=== PATIENT | female | born 1980 | race Caucasian/White ===

== ENCOUNTER 2022-11-24 20:30 | Outpatient (REF) | payer BC, SELFPAY ==
[2022-12-01 13:07] LABS: Age Gdln ACOG Testing Note (.); HPV Aptima Negative (Negative); IGP, Aptima HPV, rfx 16/18,45 Note (.)
== END 2022-11-24 20:31 | disposition home or self-care (01) ==
LOC: LAB 20:30
PROVIDERS: PCP Physician Assistant; Visit Provider Physician Assistant
DX: Z12.4 Encounter for screening for malignant neoplasm of cervix (principal)
CPT/HCPCS: 87624; G0145

== ENCOUNTER 2022-12-15 10:56 | Outpatient (OUT) | payer BC, SELFPAY ==
--- NOTE | 2022-12-15 10:59 | US_ITS ---
The [address] [address] Patient Name: CHAYO MILLER MRN: [id number] date: 1980 Sex: F Assigned Patient Location: US Current Patient Location: US Accession/Order Number: [id number] Exam Date: 12/15/2022 11:00 Report Date: 12/15/2022 14:23 At the request of: RENETTA ABAD Procedure: US pelvis w/ transvaginal EXAMINATION: US pelvis w/ transvaginal HISTORY: MENORRHAGIA , chronic COMPARISON: No relevant comparison available. TECHNIQUE: Transabdominal and/or transvaginal sonographic examination was performed as indicated by examination type. FINDINGS: UTERUS: Slightly prominent, but normal contour and echotexture. Uterus size: 8.1 x 5.4 x 6.4 cm ENDOMETRIUM: Slightly heterogeneous, but normal thickness. No mass or fluid collection. Endometrial thickness: 9 mm RIGHT OVARY: Contains several follicles. Duplex Doppler demonstrates normal waveform and flow; resistive index 0.5. Ovary size: 4.2 x 2.3 x 2.4 cm LEFT OVARY: Contains several follicles. Duplex Doppler demonstrates normal waveform and flow; resistive index 0.6. Ovary size: 4.1 x 2.1 x 2.7 cm CUL-DE-SAC: Unremarkable. No significant free fluid. BLADDER: Unremarkable. OTHER: None. US/US pelvis w/ transvaginal IMPRESSION: 1. Slightly heterogeneous endometrium, but no appreciable mass or abnormal thickening to account for patient's symptoms. 2. Both ovaries contain several follicles; normal for age. Electronically authenticated by: CORINA HUANG Date: 12/15/2022 14:23
== END 2022-12-15 10:57 | disposition home or self-care (01) ==
LOC: US 10:56
PROVIDERS: PCP Family Medicine; Visit Provider Physician Assistant
DX: N92.1 Excessive and frequent menstruation with irregular cycle (principal)
CPT/HCPCS: 36415; 76830; 76856; 83036; 84439; 84443; 84702; 85025; 85610; 85730

== ENCOUNTER 2022-12-15 11:38 | Outpatient (OUT) | payer BC, SELFPAY ==
[2022-12-15 12:16] LABS: Basophils Percent Auto 0.5 % (0.2-2.0); Eosinophils Absolute Auto 0.2 10^3/uL (0.0-0.7); Eosinophils Percent Auto 2.6 % (0.9-7.0); Hematocrit 42.9 % (36.0-48.0); Hemoglobin 13.8 g/dL (12.0-16.0); Immature Granulocytes Abs Auto 0.02 10^3/uL (0.00-0.03); Immature Granulocytes Pct Auto 0.3 % (0.0-0.5); Lymphocytes Percent Auto 32.5 % (20.5-60.0); Mean Corpuscular HGB Conc 32.2 g/dL (29.9-35.2); Mean Platelet Volume 9.4 fL (9.5-13.5); Monocytes Absolute Auto 0.4 10^3/uL (0.3-0.8); Monocytes Percent Auto 6.6 % (1.7-12.0); Neutrophils Absolute Auto 3.5 10^3/uL (1.4-6.5); Neutrophils Percent Auto 57.5 % (43.0-75.0); Platelet Count 285 10^3/uL (150-450); Red Blood Count 4.93 10^6/uL (4.20-5.40); Red Cell Distribution Width 12.2 % (11.0-15.0)
[2022-12-15 12:29] LABS: Estimated Average Glucose 100 mg/dL; Glycohemoglobin A1C 5.1 % (4.5-6.2)
[2022-12-15 12:32] LABS: INR 0.98; Partial Thromboplastin Time 25.6 sec (22.3-36.2); Prothrombin Time 10.4 sec (9.0-11.6)
[2022-12-15 12:50] LABS: HCG Quantitative <1 mIU/mL; Thyroid Stimulating Hormone 1.079 uIU/mL (0.358-3.740)
[2022-12-15 12:56] LABS: Free T4 0.93 ng/dL (0.76-1.46)
== END 2022-12-15 11:39 | disposition home or self-care (01) ==
LOC: LAB 11:39
PROVIDERS: PCP Family Medicine; Visit Provider Physician Assistant
DX: N92.1 Excessive and frequent menstruation with irregular cycle (principal)
CPT/HCPCS: 36415; 83036; 84439; 84443; 84702; 85025; 85610; 85730

== ENCOUNTER 2023-01-14 06:12 | Day surgery (SDC) | payer BC, SELFPAY ==
[2023-01-05 09:33] VITALS: BP 137/90; PULSE 75; RESP 16; TEMP 36.3; O2SAT 97; BMI 29.7
[2023-01-14] VITALS (12 sets, daily range): BP systolic 112–144; BP diastolic 74–89; PULSE 72–92; RESP 9–17; TEMP 36.3–36.7; O2SAT 92–98; BMI 29.7
[2023-01-14 06:38] LABS: Basophils Percent Auto 0.5 % (0.2-2.0); Eosinophils Absolute Auto 0.2 10^3/uL (0.0-0.7); Eosinophils Percent Auto 2.6 % (0.9-7.0); Hematocrit 42.1 % (36.0-48.0); Hemoglobin 13.7 g/dL (12.0-16.0); Immature Granulocytes Abs Auto 0.03 10^3/uL (0.00-0.03); Immature Granulocytes Pct Auto 0.4 % (0.0-0.5); Lymphocytes Absolute Auto 2.3 10^3/uL (1.2-3.8); Lymphocytes Percent Auto 29.6 % (20.5-60.0); Mean Corpuscular HGB Conc 32.5 g/dL (29.9-35.2); Mean Corpuscular Hemoglobin 28.4 pg (26.7-34.0); Mean Corpuscular Volume 87.2 fL (81.0-99.0); Mean Platelet Volume 9.5 fL (9.5-13.5); Monocytes Absolute Auto 0.5 10^3/uL (0.3-0.8); Monocytes Percent Auto 6.5 % (1.7-12.0); Neutrophils Absolute Auto 4.6 10^3/uL (1.4-6.5); Neutrophils Percent Auto 60.4 % (43.0-75.0); Platelet Count 266 10^3/uL (150-450); Red Blood Count 4.83 10^6/uL (4.20-5.40); Red Cell Distribution Width 12.1 % (11.0-15.0); White Blood Count 7.7 10^3/uL (4.0-11.0)
[2023-01-14 06:53] LABS: HCG Quantitative <1 mIU/mL
[2023-01-14] MEDS: LACTATED RINGER'S SOLUTION 1,000 ML 50 ML IV (07:04)
[2023-01-14] MEDS: LACTATED RINGER'S SOLUTION 1,000 ML 1000 ML IV (08:54)
--- NOTE | 2023-01-14 09:13 | PM.ONB ---
Brief Operative Note Date of procedure: 01/14/23 Pre-op diagnosis: menorrhagia, dysmenorrhea, desires permanent sterilization Post-op diagnosis: same as pre-op Procedure: NAME OF PROCEDURE: [ ] Vivi endometrial ablation with hysteroscopy. robotic assisted bilateral laparscopic salpingectomy with lt ovarian cystoscopy PROCEDURE: The patient was taken back to the OR where she was prepped and draped in the normal sterile fashion after being placed in the dorsal lithotomy position, after being placed under general anesthesia without difficulty.? A weighted speculum was placed into the vagina. The anterior lip was grasped with a single tooth tenaculum. The patient was then sounded to approximated 8cm. The patient?s cervix was gently dilated using hegardilators. The hysteroscope was passed through the cervix into the uterus where both ostia were seen. No gross evidence of polyps, fibroids or malignancy. The cervical length was noted to be 4 cm. The total cavity length is 4cm.? The Vivi ablation apparatus was set to approximately 4cm in length. This was placed through the cervix and into the uterus. After the seal was tested, at that time the total ablation of 120 seconds was performed with the Vivi withoutdifficulty. All instruments were removed from the vagina. Excellent hemostasis noted.? A wet sponge stick was placed into the patient's vagina. Attention was then turned to the patient's abdomen, where a scalpel was used to make a small infraumbilical incision. The S retractors were then used to dissect the underlying layers until the fascia could be seen. The fascia was then grasped with Mark clamps and tented up. A knife was then used to make a small incision to the fascia. The muscle was identified, at that time two sutures of #0 Vicryl on a GI needle was then used and placed through the fascia. the peritoneum was then identified and entered bluntly. The 10-4 Luis was then placed into the patient's abdomen. This was confirmed with direct visualization of the bowel, using the laparoscope. The patient's abdomen was then insufflated using approximately 4 liters of CO2 gas. Survey of the patient's abdomen demonstrated ovaries were normal in appearance as well as both tubes and uterus. A second and third rt and lt lateral robotic ports which were 8 mm in size, was then placed after the skin incision was made under direct visualization . The robotic arms were engaged. The patient's tube on the patient's right side was identified and tented up using a grasper, the ligasure apparatus was then used to come across the mesosalpingx from the fimbriated end to the insertion site at the uterus, the tube was then amputated and removed in its entirety. This was done on the contralateral side. The tubes were the removed from the patients abdomen. Excellent hemostasis was noted. Lt ovarian cystectomy performed using the vessel sealer. The lateral ports were then moved under direct visualization with excellent hemostasis. All instruments were removed from the patient's abdomen. The fascia was closed using the #0 Vicryl on GI needle. The skin was closed using 4-0 Vicryl subcuticularly. All instruments were removed from the patient's vagina as well. The patient was taken out of the dorsal lithotomy position and placed in the supine position and taken to recovery in stable condition. Sponge, lap and needle counts were correct x2. Anesthesia: LIZ Surgeon: Mark Forte Supervisor Type Photography: Marlena Galvez Estimated blood loss (mL): 575 Pathology: other (bilateral tubes) Condition: stable Disposition: floor
[2023-01-14] MEDS: PROMETHAZINE HCL 25 MG TABLET PO (09:58)
[2023-01-14] MEDS: HYDROCODONE/ACET 5-325 MG TABLET 1 TAB PO (09:58)
== END 2023-01-14 11:05 | disposition home or self-care (01) ==
PROVIDERS: PCP Family Medicine; Visit Provider Obstetrics & Gynecology
PROC: (CPT 49322; principal; 2023-01-14 07:30)
PROC: (CPT 49322; 2023-01-14 07:30)
DX: Z30.2 Encounter for sterilization (principal); N92.0 Excessive and frequent menstruation with regular cycle; N83.202 Unspecified ovarian cyst, left side; N93.9 Abnormal uterine and vaginal bleeding, unspecified; R10.2 Pelvic and perineal pain; J45.909 Unspecified asthma, uncomplicated; K58.9 Irritable bowel syndrome, unspecified; R12 Heartburn; Z87.891 Personal history of nicotine dependence
CPT/HCPCS: 49322; 58563; 58661; 36415; 84702; 85025; 88302; J1170; J2704

== ENCOUNTER 2024-09-20 18:02 | Outpatient (REF) | payer BC, SELFPAY ==
--- OUTSIDE RECORDS SUMMARY | 2024-09-20 11:00 | XMS_ITS | Encounter Summary ---
Author Organization [facility] Address [address] [place] [address] Care Team Providers Care Seismograph Computer Name Role Phone Darlene Comer MD Primary Care Provider [phone] Ankit Hernandez DO Unavailable [phone] Reason for Visit * Reason Comments Well Women Visit Encounter Details Date Type Department Care Team (Late st Contact Info) Description 09/20/2024 11:00 AM EDT Office Visit [facility] [address] [place] [address] Juana Conrad PA [address] [facility] [address] [place], [id number] Well woman exam with routine gynecological exam; Breast cancer screening by mammogram Social History Tobacco Use Types Packs/Day Years Used Date Smoking Tobacco: Former Cigarettes Alcohol Use Standard Drinks/Week Comments Yes 0 (1 standard drink = 0.6 oz pure alcohol) Caffeine intake: 1-2 cups per day AUDIT-C Answer Date Recorded Q1: How often do you have a drink containing alc ohol? 2-4 times a month 07/04/2023 Q2: How many drinks containi ng alcohol do you have on a typical day when you are drinking? 3 or 4 07/04/2023 Q3: How often do you have si x or more drinks on one occasion? Less than monthly 07/04/2023 Comments Unknown Sex and Gender Information Value Date Recorded Sex Assigned at Not on file Legal Sex Female 7:09 PM EDT Gender Identity Not on file Sexual Orientation Not on file documented as of this encounter Last Filed Vital Signs Vital Sign Reading Time Taken Comments Blood Pressure 110/74 09/20/2024 11:20 AM EDT Pulse - - Temperature - - Respiratory Rate - - Oxygen Saturation - - Inhaled Oxygen Concentration - - Weight 79.7 kg (175 lb 12.8 oz) 025 11:20 AM EDT Height - - Body Mass Index 27.53 01/19/2023 8:47 AM EDT documented in this encounter Progress Notes * SHAHNAZ Cartagena - 09/20/2024 11:00 AM EDT Reason for Appointment: Patient ID: June Fernandes is a 43 y.o. female who presents for Well Women Visit Patient presents today for Annual Exam. MEDICATIONS Current Outpatient Medications Medication Instructions Emgality 120 mg naproxen sodium (Aleve) 220 MG tablet Every 12 hours Nurtec 75 mg, Oral, Daily PRN ALLERGIES Allergies Allergen Reactions Promethazine Unknown Other Reaction(s): confusion PROBLEMS Active Ambulatory Problems Diagnosis Date Noted Migraine without aura and without status migrainosus, not intractable 07/04/2023 IBS (irritable bowel syndrome) 07/04/2023 Catamenial disorder 07/04/2023 Abdominal migraine, not intractable 07/04/2023 Chronic migraine with aura 07/04/2023 Resolved Ambulatory Problems Diagnosis Date Noted No Resolved Ambulatory Problems Past Medical History: Diagnosis Date Arthralgia Asthma (HCC) Concussion Encounter for gynecological examination (general) (routine) without abnormal findings Heartburn Irritable bowel syndrome Migraines Plantar fasciitis Rosacea Sinus tarsi syndrome of right foot HISTORY PAST MEDICAL HISTORY SOCIAL HISTORY Past Medical History: Diagnosis Date Arthralgia Asthma (HCC) Concussion Encounter for gynecological examination (general) (routine) without abnormal findings Heartburn Irritable bowel syndrome Migraines Plantar fasciitis Rosacea Sinus tarsi syndrome of right foot Social History Tobacco Use Smoking status: Former Types: Cigarettes Smokeless tobacco: Not on file Substance Use Topics Alcohol use: Yes Comment: Caffeine intake: 1-2 cups per day Drug use: Never FAMILY HISTORY Family History Problem Relation Name Age of Onset Hypertension Mother Hypertension Father Transient ischemic attack Father Migraines Father Hypertension Sister Stroke Maternal Grandmother Melanoma Neg Hx SURGICAL HISTORY Past Surgical History: Procedure Laterality Date SECTION, LOW TRANSVERSE 2014 EGG RETRIEVAL 2013 x2 ENDOMETRIAL ABLATION 01/14/2023 FOOT SURGERY 07/19/2017 FOOT SURGERY Right 03/2017 HAND SURGERY Left 03/2001 OTHER SURGICAL HISTORY 2000 L Hand K Wire Fixation OTHER SURGICAL HISTORY T&A OTHER SURGICAL HISTORY 2013 hemmoidectomy SALPINGECTOMY Bilateral 01/14/2023 TONSILLECTOMY WISDOM TOOTH EXTRACTION WRIST SURGERY Left 01/2020, 06/2020 REVIEW OF SYSTEMS Review of Systems: Review of Systems Constitutional: Negative. HENT: Negative. Eyes: Negative. Respiratory: Negative. Cardiovascular: Negative. Gastrointestinal: Negative. Genitourinary: Negative. Musculoskeletal: Negative. Skin: Negative. Neurological: Negative. All other systems reviewed and are negative. Hematological: Negative. Endocrine: Negative. Allergic/Immunologic: Negative. OBJECTIVE Objective: Physical Exam Constitutional: Appearance: Normal appearance. She is well-developed. Genitourinary: Vulva normal. Cardiovascular: Rate and Rhythm: Normal rate and regular rhythm. Pulmonary: Effort: Pulmonary effort is normal. Breath sounds: Normal breath sounds. Abdominal: General: Bowel sounds are normal. There is no distension. Palpations: Abdomen is soft. Tenderness: There is no abdominal tenderness. There is no guarding or rebound. Musculoskeletal: General: No swelling. Normal range of motion. Right lower leg: No edema. Left lower leg: No edema. Neurological: Mental Status: She is alert and oriented to person, place, and time. Skin: General: Skin is warm and dry. Psychiatric: Mood and Affect: Mood normal. Behavior: Behavior normal. Vitals and nursing note reviewed. Exam conducted with a negative spotter present. Vitals: Estimated body mass index is 27.53 kg/m?? as calculated from the following: Height as of 01/19/23: 5' 7 . Weight as of this encounter: 175 lb 12.8 oz. BP: 110/74 No LMP recorded. ASSESSMENT & PLAN ICD-10-CM 1. Well woman exam with routine gynecological exam Z01.419 THIN PREP TIS PAP AND HR HPV DNA 2. Breast cancer screening by mammogram Z12.31 Bilateral screening mammogram Bilateral screening mammogram Annual Exam: Patient presents today for an annual exam. Patient states she is doing well and has no complaints. Pap was obtained without difficulty. Orders Placed This Encounter Procedures Bilateral screening mammogram Follow Up: Patient is to return in one year for annual unless needed otherwise. Documented by Christina Johnston LPN on behalf of: SHAHNAZ Cartagena documented in this encounter Plan of Treatment Upcoming Encounters Date Type Department Care Team (Late st Contact Info) Description 09/23/2025 11:00 AM EDT Office Visit [facility] [address] [place] [address] Juana Conrad PA [address] [place], [id number] Scheduled Orders Name Type Priority Associated Diagnoses Orde r Schedule Bilateral screening mammogram Imaging Routine Breast cancer screening by mammogram Expected: 09/20/2024 (Approximate), Expires: 11/20/2025 THIN PREP TIS PAP AND HR HPV DNA Pathology and Cytology Routine Well woman exam with routine gynecological exam Ordered: 09/20/2024 documented as of this encounter Procedures Procedure Name Priority Date/Time Associated Diagnosis Comments PAP SMEAR Routine 11/24/2022 12:00 AM EDT documented in this encounter Results * Pap Smear (11/24/2022 12:00 AM EDT) Swab Cervical swab / Unknown us [facility] ORDERABLES Final Re sult EXTERNAL LAB documented in this encounter Visit Diagnoses Diagnosis Well woman exam with routine gynecological exam Routine gynecological examination Breast cancer screening by mammogram documented in this encounter Care Teams Seismograph Computer Relationship Specialty Start Date End Date Darlene Comer MD [address] [facility] [place] [address] PCP - General Family Medicine 11/24/22 Ankit Hernandez DO [address] [place] [address] Referring Physician Neurology 06/15/23 documented as of this encounter
--- OUTSIDE RECORDS SUMMARY | 2024-09-20 18:06 | XMS_ITS | Referral Summary ---
Author Organization [facility] Address [address] [place] [address] Care Team Providers Care Commercial Floor Covering Installer Name Role Phone Unavailable Primary Care Provider Unavailabl e Social History Tobacco Use Types Packs/Day Years Used Date Smoking Tobacco: Never Assessed Comments Unknown Sex and Gender Information Value Date Recorded Sex Assigned at Not on file Legal Sex Female 12:22 AM EDT Gender Identity Not on file Sexual Orientation Not on file Last Filed Vital Signs Vital Sign Reading Time Taken Comments Blood Pressure - - Pulse - - Temperature - - Respiratory Rate - - Oxygen Saturation - - Inhaled Oxygen Concentration - - Weight 77.1 kg (170 lb) 03/30/2019 9:29 AM EST Height 170.2 cm (5' 7 ) 05/18/2019 9:51 AM EST Body Mass Index 26.63 03/30/2019 9:28 AM EST Plan of Treatment Not on file
--- OUTSIDE RECORDS SUMMARY | 2024-09-20 18:06 | XMS_ITS | Clinical Summary ---
Author Organization [facility] Address [address] [place] [address] Care Team Providers Care Remote Inpatient Coder Name Role Phone Unavailable Primary Care Provider [...]
--- OUTSIDE RECORDS SUMMARY | 2024-09-20 18:06 | XMS_ITS | Encounter Summary ---
Author Organization [facility] Address [address] [place] [address] Care Team Providers Care Square Dance Caller Name Role Phone Darlene Comer MD Primary Care Provider [phone] Ankit Hernandez DO Unavailable [phone] Encounter Details Date Type Department Care Team (Latest Contact Info) Description 09/17/2024 Travel Social History Tobacco Use Types Packs/Day Years [...] on file documented as of this encounter Plan of Treatment Upcoming Encounters Date Type Department Care Team (Late st Contact Info) Description 09/23/2025 11:00 AM EDT Office Visit [facility] [address] [place] [address] Juana Conrad PA [address] [place] [address] documented as of this encounter Visit Diagnoses Not on filedocumented in this encounter Care Teams Square Dance Caller Relationship Specialty Start Date End Date Darlene Comer MD [address] [place] [address] PCP - General Family Medicine 11/24/22 Ankit Hernandez DO [address] [place] [address] Referring Physician Neurology 06/15/23 documented as of this encounter
--- OUTSIDE RECORDS SUMMARY | 2024-09-20 18:06 | XMS_ITS | Encounter Summary ---
Author Organization [facility] Address [address] [place] [address] Care Team Providers Care Wireline Supervisor Name Role Phone Darlene Comer MD Primary Care Provider [phone] Ankit Hernandez DO Unavailable [phone] Encounter Details Date Type Department Care Team (Late st Contact Info) Description 07/13/2023 Abstract [facility] [address] [facility] [address] [place] [address] Ruth Colbert MD [address] [place] [address] Social History Tobacco Use Types Packs/Day Years [...] AM EDT Office Visit [facility] [address] [place], [place] [address] [phone] Juana Conrad PA [address] [facility] [place] [address] documented as of this encounter Visit Diagnoses Not on filedocumented in this encounter Care Teams Wireline Supervisor Relationship Specialty Start Date End Date Darlene Comer MD [address] [facility] [place] [address] PCP - General Family Medicine 11/24/22 Ankit Hernandez DO [address] [place] [address] Referring Physician Neurology 06/15/23 documented as of this encounter
--- OUTSIDE RECORDS SUMMARY | 2024-09-20 18:06 | XMS_ITS | Clinical Summary ---
Author Organization [facility] Address [address] [place] [address] Care Team Providers Care Supervisor Beet End Name Role Phone Darlene Comer MD Primary Care Provider [phone] Ankit Hernandez DO Unavailable [phone] Allergies Active Allergy Reactions Criticality Noted Date Comments Promethazine Unknown Medium 11/24/2022 Other Reaction(s): confusion Medications naproxen sodium (Aleve) 220 MG tablet every 12 (twelve) hours Active galcanezumab (Emgality) 120 MG/ML prefilled syringe Inject 120 mg under the skin Active Rimegepant Sulfate (Nurtec) 75 MG tablet dispersibleIndic ations:Chronic migraine without aura without status migrainosus, not intractable Take 75 mg by mouth Daily as needed (1 tablet PO to abort migraine) 8 tablet 5 5 Active venlafaxine XR (Effexor XR) 75 MG 24 hr capsule Take 75 mg by mouth in the morning. 3 09/12/19 25 Discontinu ed(Therapy completed) Omeprazole 20 MG Tablet Delayed Release Dispersible 09/21/19 25 Discontinu ed(Other) escitalopram (Lexapro) 10 MG tablet Take 10 mg by mouth Daily 09/21/19 25 Discontinu ed(Other) Active Problems Problem Noted Date Diagnosed Date Migraine without aura and wi thout status migrainosus, not intractable 07/04/2023 IBS (irritable bowel syndrome) 07/04/2023 Catamenial disorder 07/04/2023 Abdominal migraine, not intractable 07/04/2023 Chronic migraine with aura 07/04/2023 Encounters Date Type Department Care Team Description 09/20/2024 11:00 AM EDT Office Visit [facility] [address] [facility] [place] [place] [address] Juana Conrad PA Well woman exam with routine gynecological exam; Breast cancer screening by mammogram 09/20/2024 Bamboo flowsheet [facility] [address] [place] [place] [address] Juana Conrad PA 09/17/2024 Travel 07/09/2024 11:15 AM EDT Office Visit [facility] [address] [place] [address] Ankit Hernandez DO Chronic migraine without aura without status migrainosus, not intractable (Primary Dx) 07/09/2024 Bamboo flowsheet [facility] [address] [facility] [address] [place] [address] Ankit Hernandez DO 07/08/2024 Travel from Last 3 Months Family History Medical History Relation Name Comments Hypertension Father Migraines Father Transient ischemic attack Father Stroke Maternal Grandmother Hypertension Mother Hypertension Sister Melanoma Neg Hx Relation Name Status Comments Brother 2, healthy Daughter 2, healthy Father Alive Maternal Grandmother Mother Alive Other spouse Alive Sister Social History Tobacco Use Types Packs/Day Years Used Date Smoking Tobacco: Former Cigarettes Tobacco Cessation:Counseling Given: Not Answered Alcohol Use Standard Drinks/Week Comments Yes 0 [...] Pressure 110/74 09/20/2024 11:20 AM EDT Pulse 75 07/09/2024 11:18 AM EDT Temperature - - Respiratory Rate 16 07/13/2023 9:55 AM EDT Oxygen Saturation 95% 07/09/2024 11: 18 AM EDT Inhaled Oxygen Concentration - - Weight 79.7 kg (175 lb 12.8 oz) 025 11:20 AM EDT Height 170.2 cm (5' 7 ) 01/19/2023 8:47 AM EDT Body Mass Index 27.53 01/19/2023 8:47 AM EDT Plan of Treatment Upcoming Encounters Date Type Department Care Team (Late st Contact Info) Description 09/23/2025 11:00 AM EDT Office Visit [facility] [address] [facility] [place] [place] [phone] Juana Conrad PA [address] [place] [address] Health Maintenance Due Date Last Done Comments Mammogram 2022 Cervical Cancer Screening 11/25/2027 HPV/Cotest 11/25/2027 02/12/2019 Pap Smear 11/25/2027 11/24/2022, 02/12/2019 Influenza Vaccine Completed 01/31/2024, 03/08/2018, 02/11/2017 Procedures Procedure Name Priority Date/Time Associated Diagnosis Comments PAP SMEAR Routine 11/24/2022 12:00 AM EDT THINPREP TIS PAP REFLEX HPV MRNA E6/E7 (56580) Routine 02/12/2019 from Last 3 Months or Most Recently Relevant to Health Maintenance Results * Pap Smear (11/24/2022 12:00 AM EDT) Swab Cervical swab / Unknown [facility] ORDERABLES Final Re sult EXTERNAL LAB * THINPREP TIS PAP REFLEX HPV MRNA E6/E7 (63601) (02/12/2019) CLINICAL INFORMATION: None given [facility] LMP: None given [facility] PREV. PAP: 07/2017 [facility] PRE[facility]. BX: None given [facility] SOURCE: Cervix [facility] STATEMENT OF ADEQUACY: SEE COMMENT [facility] Comment: Satisfactory for evaluation. Endocervical/transformation zone component present. INTERPRETATION /RESULT: Negative for intraepithelial lesion or malignancy. [facility] COMMENT: This Pap test has been evaluated with computer assisted technology. [facility] CYTOTECHNOLOGI ST: SEE COMMENT [facility] Comment: BGG, LALI(ASCP) CT screening location: [employer] [facility], [address] [place] [address], [place] [address]. COMMENT SEE COMMENT [facility] Comment: EXPLANATORY NOTE: The Pap is a screening test for cervical cancer. It is not a diagnostic test and is subject to false negative and false positive results. It is most reliable when a satisfactory sample, regularly obtained, is submitted with relevant clinical findings and history, and when the Pap result is evaluated along with historic and current clinical information. 02/12/2019 Yamini Aburto BUSINESS REPORTING DEVELOPER [facility] Final Result [facility] from Last 3 Months or Most Recently Relevant to Health Maintenance Insurance [facility] Care Teams Supervisor Beet End Relationship Specialty Start Date End Date Darlene Comer MD [address] [place] [address] PCP - General Family Medicine 11/24/22 Ankit Hernandez DO [address] [address] Referring Physician Neurology 06/15/23
--- OUTSIDE RECORDS SUMMARY | 2024-09-20 18:06 | XMS_ITS | Clinical Summary ---
Author Organization [facility] Address [address] [place] [address] Phone Care Team Providers Care Bindery Machine Feeder Offbearer Name Role Phone Unavailable Primary Care Provider Unavailabl e Social History Tobacco Use Types Packs/Day Years Used Date Smoking Tobacco: Never Assessed Comments Unknown Sex and Gender Information Value Date Recorded Sex Assigned at Not on file Legal Sex Female 12:23 AM EST Gender Identity Not on file Sexual Orientation Not on file Plan of Treatment Not on file
--- OUTSIDE RECORDS SUMMARY | 2024-09-20 18:06 | XMS_ITS | Encounter Summary ---
Author Organization [facility] Address [address] [place] [address] Care Team Providers Care Senior Investment Analyst Name Role Phone Darlene Comer MD Primary Care Provider [phone] Ankit Hernandez DO Unavailable [phone] Encounter Details Date Type Department Care Team (Late st Contact Info) Description 11/23/2022 Abstract [facility] OB [address] [place] [address] Juana Conrad, PA [address] [place] [address] Dr [place], [facility] Social History Tobacco Use Types Packs/Day Years Used Date Smoking Tobacco: Former Cigarettes Tobacco Cessation:Counseling Given: Not Answered Alcohol Use Standard Drinks/Week Comments Yes 0 (1 standard drink = 0.6 oz pure alcohol) 1-2 drinks 2-4x a month in the past year, Caffeine intake: 1-2 cups per day Comments Unknown Sex and Gender Information Value Date Recorded Sex Assigned at Not on file Legal Sex Female 7:09 PM EDT Gender Identity Not on file Sexual Orientation Not on file documented as of this encounter Plan of Treatment Upcoming Encounters Date Type Department Care Team (Late st Contact Info) Description 09/23/2025 11:00 AM EDT Office Visit [facility] [address] [facility] [place] [id number] Juana Conrad, PA [address] [place] [address] Dr [place], [facility]11 documented as of this encounter Visit Diagnoses Not on filedocumented in this encounter Care Teams Senior Investment Analyst Relationship Specialty Start Date End Date Darlene Comer MD [address] [place] [phone] PCP - General Family Medicine 11/24/22 Ankit Hernandez DO [address] [place] [address] [id number] Referring Physician Neurology 06/15/23 documented as of this encounter
--- OUTSIDE RECORDS SUMMARY | 2024-09-20 18:06 | XMS_ITS | Encounter Summary ---
Author Organization [facility] Address [address] [facility] [place] [address] Care Team Providers Care Truckload Checker Name Role Phone Darlene Comer MD Primary Care Provider [phone] Ankit Hernandez DO Unavailable [phone] Encounter Details Date Type Department Care Team (Late st Contact Info) Description 12/15/2022 Clinisync Result Encounter [facility] External Department Unsolicited Juana Abad PA [address] [facility] [address] [place], [facility]11 Social History Tobacco Use Types Packs/Day [...] EDT Office Visit [facility] [address] [facility] [place] [phone] Juana Abad PA [address] [place], [place] [address] [place], [facility] documented as of this encounter Procedures Procedure Name Priority Date/Time Associated Diagnosis Comments US PELVIS W/ TRANSVAGINAL 12/15/2022 2:23 PM EDT documented in this encounter Results * US PELVIS W/ TRANSVAGINAL (12/15/2022 2:23 PM EDT) Anatomical Region Laterality Modality Other 12/15/2022 2:23 PM EDT Narrative 12/15/2022 2:23 [place] [address] Ultrasound Report Signed Patient: CHAYO MILLER MR#: [id number] : 1980 Acct:[id number] Age/Sex: 41 / F ADM Date: 12/15/22 Loc: US Attending Dr: Juana Abad Ordering Physician: Juana Abad Date of Service: 12/15/22 Procedure(s): US pelvis w/ transvaginal Accession Number(s): [id number] cc: Juana Abad; Darlene Comer M.D. [facility] [place] [id number] Patient Name: CHAYO MILLER MRN: [id number] date: 1980 Sex: F Assigned Patient Location: US Current Patient Location: US Accession/Order Number: [id number] Exam Date: 12/15/2022 11:00 Report Date: 12/15/2022 14:23 At the request of: JUANA ABAD Procedure: US pelvis w/ transvaginal EXAMINATION: US pelvis w/ transvaginal HISTORY: MENORRHAGIA , chronic COMPARISON: No relevant comparison available. TECHNIQUE: Transabdominal and/or transvaginal sonographic examination was performed as indicated by examination type. FINDINGS: UTERUS: Slightly prominent, but normal contour and echotexture. Uterus size: 8.1 x 5.4 x 6.4 cm ENDOMETRIUM: Slightly heterogeneous, but normal thickness. No mass or fluid collection. Endometrial thickness: 9 mm RIGHT OVARY: Contains several follicles. Duplex Doppler demonstrates normal waveform and flow; resistive index 0.5. Ovary size: 4.2 x 2.3 x 2.4 cm LEFT OVARY: Contains several follicles. Duplex Doppler demonstrates normal waveform and flow; resistive index 0.6. Ovary size: 4.1 x 2.1 x 2.7 cm CUL-DE-SAC: Unremarkable. No significant free fluid. BLADDER: Unremarkable. OTHER: None. US/US pelvis w/ transvaginal IMPRESSION: 1. Slightly heterogeneous endometrium, but no appreciable mass or abnormal thickening to account for patient's symptoms. 2. Both ovaries contain several follicles; normal for age. Electronically authenticated by: AMARI QUINTANILLA Date: 12/15/2022 14:23 Dictated By: Amari Quintanilla M.D. Signed By: 12/15/221425 DD/ 22 TD/TT: Glass Fitter: Procedure Note Radiology, Radiologist, MD - 12/17/2022 [place] [address] Ultrasound Report Signed Patient: CHAYO MILLER LMR#: [id number] : 1980Acct:[id number] Age/Sex: 41 / FADM Date: 12/15/22 Loc: US Attending Dr: Juana Abad Ordering Physician: Juana Abad Date of Service: 12/15/22 Procedure(s): US pelvis w/ transvaginal Accession Number(s): [id number] cc: Juana Abad; Darlene Comer M.D. [facility] [place] [id number] Patient Name: CHAYO MILLER MRN: [id number] date: 1980 Sex: F Assigned Patient Location: US Current Patient Location: US Accession/Order Number: [id number] Exam Date: 12/15/2022 11:00 Report Date: 12/15/2022 14:23 At the request of: JUANA ABAD Procedure: US pelvis w/ transvaginal EXAMINATION: US pelvis w/ transvaginal HISTORY: MENORRHAGIA , chronic COMPARISON: No relevant comparison available. TECHNIQUE: Transabdominal and/or transvaginal sonographic examination was performed as indicated by examination type. FINDINGS: UTERUS: Slightly prominent, but normal contour and echotexture. Uterussize: 8.1 x 5.4 x 6.4 cm ENDOMETRIUM: Slightly heterogeneous, but normal thickness. No mass orfluid collection. Endometrial thickness: 9 mm RIGHT OVARY: Contains several follicles. Duplex Doppler demonstratesnormal waveform and flow; resistive index 0.5. Ovary size: 4.2 x 2.3 x 2.4 cm LEFT OVARY: Contains several follicles. Duplex Doppler demonstrates normal waveform and flow; resistive index 0.6. Ovary size: 4.1 x 2.1 x 2.7 cm CUL-DE-SAC: Unremarkable. No significant free fluid. BLADDER: Unremarkable. OTHER: None. US/US pelvis w/ transvaginal IMPRESSION: 1. Slightly heterogeneous endometrium, but no appreciable mass or abnormal thickening to account for patient's symptoms. 2. Both ovaries contain several follicles; normal for age. Electronically authenticated by: AMARI QUINTANILLA Date: 12/15/2022 14:23 Dictated By: Amari Quintanilla M.D. Signed By:12/15/226 DD/ 22 TD/TT: Glass Fitter: us [facility] Final Result documented in this encounter Visit Diagnoses Not on filedocumented in this encounter Care Teams Truckload Checker Relationship Specialty Start Date End Date Darlene Comer MD [address] [place] [phone] PCP - General Family Medicine 11/24/22 Ankit Hernandez DO [address] [facility] [address] [place] [id number] Referring Physician Neurology 06/15/23 documented as of this encounter
[2024-09-25 09:11] LABS: Age Gdln ACOG Testing Note (.); HPV Aptima Negative (Negative); IGP, Aptima HPV, rfx 16/18,45 Note (.)
== END 2024-09-20 18:03 | disposition home or self-care (01) ==
LOC: LAB 18:02
PROVIDERS: PCP Family Medicine; Visit Provider Physician Assistant
DX: Z01.419 Encounter for gynecological examination (general) (routine) without abnormal findings (principal)
CPT/HCPCS: 87624; 88175